=== PATIENT | male | born 1935 | race Caucasian/White ===

== ENCOUNTER → 2016-11-19 | Outpatient (REF) ==
[~2016-11-19] MED LIST: LISINOPRIL10 MG PO; LOPRESSOR 550 MG/TAB PO; NORCO 325 MG-51 TAB PO; PROTONIX 40MG T40 MG PO; PROTONIX40 MG PO; SEPTRA DS 8001 TAB PO; VIAGRA100 MG PO
== END ==
LOC: ZLAB.WCH 19:10
DX: Z01.89 Encounter for other specified special examinations (principal)

== ENCOUNTER → 2017-11-13 | Outpatient (REF) | LOC: ZLAB.WCH 15:55 | DX: Z01.89 Encounter for other specified special examinations (principal) ==

== ENCOUNTER → 2018-08-07 | Outpatient (REF) ==
[2018-08-09 14:25] LABS: THYROID STIMULATING HORMONE 2.21 uIU/mL (0.465-4.680)
[2018-08-09 14:27] LABS: PSA-TOTAL 8.31 ng/mL (0-4)
== END ==
LOC: ZLAB.WCH 18:06
PROVIDERS: Physician Assistant
DX: Z01.89 Encounter for other specified special examinations (principal)
CPT/HCPCS: G0103